=== PATIENT | male | born 1995 | race Caucasian/White ===

== ENCOUNTER 2025-04-15 16:48 | Day surgery (SDC) | payer OTHER, SELFPAY ==
[2025-04-15] VITALS (8 sets, daily range): BP systolic 117–141; BP diastolic 70–92; BMI 27.1
--- NOTE | 2025-04-15 15:34 | ED.GENMED ---
History of Present Illness
General
Chief Complaint: Male Genito-Urinary Symptoms
Time Seen by Provider: 04/15/25 15:26
History of Present Illness
History of Present Illness:
Patient is a 29 history of spina bifida requiring intermittent self-catheterization presenting to the emergency department at the request of urology he had an outpatient cystoscopy where the scope could not be advanced. Pt urology sent for labs and
CT to then procedd with OR scope/catheter. Patient has no complaints
Phy Exam
Physical Exam
Physical Exam:
GENERAL: in no acute distress
HEENT: normocephalic, extraocular movements intact
NECK: normal inspection
RESPIRATORY: no respiratory distress
NEUROLOGIC: awake and alert, moves all extremities
SKIN: warm
Course
Orders/Labs/Results
Orders:
Orders
04/15/25 15:19
Abdomen/Pelvis wo Contrast CT [CT Abd/pelvis Wo Iv Cont] Urgent
Comment:
Reason For Exam: pain
04/15/25 15:29
CMP [Comprehensive Metabolic Panel] Urgent
Complete Blood Count/With Diff Urgent
04/15/25 16:39
Fentanyl Citrate/Pf [Sublimaze] 100 mcg .ROUTE .STK-MED ONE
Midazolam HCl [Versed] 2 mg .ROUTE .STK-MED ONE
04/15/25 16:49
CeFAZolin 2 GRAM [Ancef] 2 grams in 10 ml IV PRE PROCEDURE
04/15/25 17:23
CeFAZolin SODIUM [Ancef] 2,000 mg .ROUTE .STK-MED ONE
04/15/25 17:28
Fentanyl Citrate/Pf [Sublimaze] 25 mcg IV [id number] PRN
HYDROmorphone [Dilaudid] 0.25 mg IV [id number] PRN
HYDROmorphone [Dilaudid] 0.5 mg IV PACU-Q5MPRN PRN
Ondansetron Injectable [Zofran] 4 mg IV PACU-ONCEPRN PRN
Prochlorperazine [Compazine] 5 mg IV PACU-ONCEPRN PRN
Notify MD As Directed
Notify physician if: for SDS patients with known or suspected sleep obstructive sleep apnea, monitor in the
PACU.
Notify MD for any apneic/desaturation episodes
O2 Therapy [RESP] Urgent
Titrate/Wean O2 to maintain O2 sat greater than (%): 92
Special Instructions: -Provide supplemental oxygen to achieve O2 sat of 92% or greater.
-After 15 min, may wean O2 and discontinue if patient is able to maintain O2 sat of 92%
or greater during recovery period.
If patient is a discharge home, without oxygen therapy, notify anestheiologist if
unable to maintain O2 SAT of 92% or greater on room air for MD clearance.
04/15/25 17:30
Diphenhydramine [Benadryl] 50 mg .ROUTE .STK-MED ONE
Normosol (Mult Electrolytes) [Normosol-R/Plasmalyte-A] 1,000 ml IV PER PROTOCOL
04/15/25 17:32
Iohexol [Omnipaque] 50 ml .ROUTE .STK-MED ONE
04/15/25 17:43
Phenylephrine HCl/0.9% NaCl [Robbie-Synephrine] 1,000 mcg .ROUTE .STK-MED ONE
04/15/25 17:58
Sugammadex Sodium [Bridion] 200 mg .ROUTE .STK-MED ONE
04/15/25 17:59
Furosemide [Lasix] 40 mg .ROUTE .STK-MED ONE
04/15/25 18:10
Acetaminophen 1000MG/100Ml [Ofirmev] 1,000 mg in 100 ml .ROUTE .STK-MED
04/15/25 18:13
RF Fluoroscopy, C-arm Routine
RF Retrograde Pyelogram Routine
Reason For Exam: CYSTOSCOPY, CATHETER PLACED
Abnormal Lab Results
04/15/25
15:29
MPV 10.6 H fL
(7.4-10.4)
Abs Immat Gran (auto) 0.1 H 10^3/uL
(0-0.05)
Absolute Monos (auto) 0.7 H 10^3/uL
(0.1-0.6)
Immature Gran % 1.4 H %
(0-0.5)
Monocytes % 9.5 H %
(1.7-9.3)
Total Bilirubin 1.9 H mg/dl
(0.2-1.3)
AST 78 H U/L
(17-59)
ALT 140 H U/L
(0-50)
Total Protein 8.3 H g/dl
(6.3-8.2)
04/15/25 15:29
04/15/25 15:29
Vital Signs
Initial and Last Documented VS:
Initial Vital Signs
Temp Pulse Resp BP Pulse Ox
98.3 F 89 16 141/92 100
04/15/25 15:15 04/15/25 15:15 04/15/25 15:15 04/15/25 15:15 04/15/25 15:15
Last Documented Vital Signs
Temp Pulse Resp BP Pulse Ox
98.3 F 89 16 141/92 100
04/15/25 15:15 04/15/25 15:15 04/15/25 15:15 04/15/25 15:15 04/15/25 15:37
MDM/Problems Addressed
Differential Diagnosis Includes:
29-year-old man presenting to the emeregncy at the request of urology for OR cystoscopy/catheter. patient has no complaints. i did discuss with dr pritchard who is aware patient is now here in the ED. Recommended labs and CT without contrast then
transfer up to OR for scope/catheter. Patient otherwise has no complaints.
patient taken up to OR pending CT results. patient transferred in stable condition
*Pulse Oximetry
SaO2: 100
Oxygen Mode of Delivery: Room air
Patient hypoxic: no
*Critical Care Note
Total Time (30-74mins, 75-104mins- exclusive of procedures): Not Applicable
ED Attending Note
-
Portions of this chart may have been created with voice recognition software.� Occasional wrong word or��sound alike� substitutions may have occurred due to the inherent limitations of voice recognition software.
Discharge Plan
Interventions
Interventions:
*Risk Screen - Suicide Last Done: 04/15/25 15:15
*General Assessment Last Done: 04/15/25 15:53
*Neglect/Abuse Screening Last Done: 04/15/25 15:15
*ED- Fall Risk Assessment Last Done: 04/15/25 16:47
*ED COVID-19 Vaccine History Last Done: 04/15/25 15:53
*ED Influenza Vaccine History Last Done: 04/15/25 15:53
*Nursing Disposition Last Done: 04/15/25 16:47
ED-Male Genitourinary Assessment Last Done: 04/15/25 15:31
--- NOTE | 2025-04-15 15:37 | W.PN.UPDATE ---
Update Note
Progress Note Update
29M referred to [facility] ED after attempt at diagnostic cystoscopy today - notable for significant narrowing of proximal penile urethra/bulbar urethra w/ inability to cannulate w/ cystoscopy or guidewire under direct visualization.
During withdrawal urethroscopy, weakening of ventral mid-penile urethra noted w/ false passage.
True urethral lumen easily visualized but due to difficulty obtaining bladder access for drainage, he was referred to ED for cystoscopy/cystogram/complicated catheter placement vs. SPT.
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
s/p ileal augmentation cystoplasty (in HS).
s/p open cystolithotomy ~3 yrs ago.
Had SPT after augmentation cystoplasty for 1-2 yrs - removed prior to age 17.
Currently uses 14Fr straight tip catheters for CIC q3hrs daily w/ notable resistance on passage by patient.
Plan
- CTAP w/o IV contrast
- CBC/BMP
- To OR for cystoscopy/dilation/complicated catheter placement vs. SPT insertion
D/w patient.
D/w ED staff.
[2025-04-15 15:43] LABS: Hematocrit 49.6 % (39.0-52.0); Hemoglobin 16.8 g/dL (13.0-18.0); Mean Corp Hgb Conc. 33.9 g/dL (33.0-37.0); Mean Corpuscular Volume 91.5 fL (80.0-94.0); Nucleated Red Blood Cells % 0 % (-); Platelet Count 222 10^3/uL (130-400); Red Cell Dist. Width 11.7 % (11.5-14.5)
[2025-04-15 16:07] LABS: ALT (SGPT) 140 U/L (0-50); AST (SGOT) 78 U/L (17-59); Albumin 5.0 g/dl (3.5-5.0); Alkaline Phosphatase 73 U/L (38-126); Blood Urea Nitrogen 13 mg/dl (9-20); Calcium 9.8 mg/dl (8.4-10.2); Carbon Dioxide 27 mmol/L (22-30); Chloride 106 mmol/L (98-107); Estimated Creatinine Clearance 104 ml/min; Glucose 98 mg/dl (70-99); Potassium 4.4 mmol/L (3.5-5.1); Sodium 137 mmol/L (135-145); Total Protein 8.3 g/dl (6.3-8.2); eGFR > 60.00
== END 2025-04-15 20:04 | disposition home or self-care (01) ==
LOC: SDS 16:48
PROVIDERS: Surgery; EMERGENCY PHYSICIAN Student in an Organized Health Care Education/Training Program; FAMILY PHYSICIAN Family Medicine
DX: N35.912 Unspecified bulbous urethral stricture, male (principal); N31.9 Neuromuscular dysfunction of bladder, unspecified; Q05.9 Spina bifida, unspecified; N36.5 Urethral false passage
CPT/HCPCS: 52281; 74176; 74420; 76000; 80053; 85025; 99285; C1769

== ENCOUNTER 2025-04-29 06:22 | Day surgery (SDC) | payer OTHER, SELFPAY ==
[2025-04-29 15:30] VITALS: BP 144/97; BMI 26.8
--- NOTE | 2025-04-29 15:50 | W.SUR.PREOP ---
Pre-Operative Surgical Note
-
I have examined this patient prior to the performance of the scheduled procedure.
The patient's condition is unchanged from the time of the current History and
Physical and the patient is able to undergo the scheduled procedure.
To OR for catheter removal, cystoscopy, possible cystogram, possible urethral dilation
D/w patient.
[2025-04-29 17:00] VITALS: BP 103/58; BP 144/97
--- NOTE | 2025-04-29 17:00 | W.IMMPOSTOP ---
Surgical Immed Post Op Note
-
Primary Surgeon: Deborah
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
Post-op Diagnosis: Same
Procedure Performed: cystourethroscopy, cystogram, catheter removal
Anesthesia Type: LMA
Specimen / Cultures: None/None
Estimated Blood Loss: Negligible
Drains: None (prior catheter removed)
Complications: None
Operative Findings: complete healing of previously noted mid penile urethra ventral false passage, significant bulbar urethral stenosis previously noted cannulated easily w/ 16Fr flexible cystoscope, normal bladder w/ augmentation noted at bladder
dome.
[2025-04-29 17:15] VITALS: BP 113/72
[2025-04-29 17:30] VITALS: BP 111/69
[2025-04-29 17:45] VITALS: BP 126/83
== END 2025-04-29 18:01 | disposition home or self-care (01) ==
LOC: SDS 06:22
PROVIDERS: ATTENDING PHYSICIAN Surgery
DX: N31.9 Neuromuscular dysfunction of bladder, unspecified (principal); R33.8 Other retention of urine; R39.15 Urgency of urination; N39.8 Other specified disorders of urinary system; Q05.9 Spina bifida, unspecified; R32 Unspecified urinary incontinence; N35.919 Unspecified urethral stricture, male, unspecified site
CPT/HCPCS: 52000